=== PATIENT | female | born 1965 | race Caucasian/White ===

== ENCOUNTER → 2017-08-10 | Outpatient (CLI) | payer BC ==
[~2017-08-10] MED LIST: NORCO 325 MG-51 TAB PO; ROBAXIN 50500 MG/TAB PO
== END ==
LOC: COL.RAD 07:53
DX: H83.02 Labyrinthitis, left ear (principal); J32.0 Chronic maxillary sinusitis; J32.2 Chronic ethmoidal sinusitis; J32.3 Chronic sphenoidal sinusitis
CPT/HCPCS: A9585

== ENCOUNTER → 2019-07-25 | Outpatient (CLI) | payer BC | LOC: MC.RAD 16:22 | DX: Z12.31 Encounter for screening mammogram for malignant neoplasm of breast (principal) ==

== ENCOUNTER → 2020-07-28 | Outpatient (CLI) | payer BC | LOC: MC.RAD 16:46 | DX: Z12.31 Encounter for screening mammogram for malignant neoplasm of breast (principal) ==

== ENCOUNTER 2021-10-15 14:49 | Outpatient (RCR) | payer OTHER | END 2021-10-26 | disposition home or self-care (01) | LOC: WSOH | DX: S20.229D Contusion of unspecified back wall of thorax, subsequent encounter (principal); S20.219D Contusion of unspecified front wall of thorax, subsequent encounter; Z98.51 Tubal ligation status; Z90.89 Acquired absence of other organs; Y99.0 Civilian activity done for income or pay; Y04.2XXD Assault by strike against or bumped into by another person, subsequent encounter ==

== ENCOUNTER → 2022-01-25 | Outpatient (CLI) | payer BC | LOC: MC.RAD 16:28 | DX: Z12.31 Encounter for screening mammogram for malignant neoplasm of breast (principal) ==

== ENCOUNTER → 2024-03-12 | Outpatient (CLI) | payer BC | LOC: MC.RAD 07:14 | DX: Z12.31 Encounter for screening mammogram for malignant neoplasm of breast (principal) ==